=== PATIENT | male | born 1940 | race American Indian/Alaskan Native ===

== ENCOUNTER 2017-12-28 10:15 | Day surgery (SDC) | payer MEDICARE ==
[2017-12-23 10:15] VITALS: BMI 26.6
[2017-12-28] MEDS ORDERED: EPINEPHrine 1 mg/ml (1:1000) Inj ONE (11:26)
[2017-12-28] MEDS ORDERED: Lidocaine 2% MPF (5 ml) Inj ONE (11:27)
[2017-12-28] MEDS ORDERED: Midazolam 2 MG/2 ML VIAL ONE (11:39)
[2017-12-28] MEDS ORDERED: Propofol 10 mg/ml Inj (20 ML) ONE (12:27)
[2017-12-28] MEDS ORDERED: Succinylcholine Chloride 20 mg/ml Syr (5 ml) IV ONE (12:32)
[2017-12-28] MEDS ORDERED: Lactated Ringer's 1,000 ML IV ONE (13:25)
[2017-12-28] MEDS ORDERED: Lactated Ringer's 1,000 ML IV SCH (13:45)
--- NOTE | 2017-12-28 14:11 | RAD ---
PROCEDURE: Intraoperative Fluoroscopy. HISTORY: RT. LUNG MASS FINDINGS: Fluoroscopic assistance was provided for bronchoscopy. Please refer to the operative report from [facility]. Total fluoroscopic time (continuous mode) utilized during the procedure 56.5 (seconds). Total exam DLP: (mGy) 7.85
--- NOTE | 2017-12-28 14:15 | RAD ---
HISTORY: s/p bronchoscopy; History of lung cancer COMPARISON: No prior. FINDINGS: LUNGS: Extensive abnormal opacity throughout the right lung, heterogeneous. Bandlike opacity at the right base, possibly atelectasis. Homogeneous opacity in the upper right lung. Left lung clear. PLEURA: Possible small right pleural effusion. No pneumothorax. CARDIOVASCULAR: Normal. OSSEOUS STRUCTURES: Deformity of right chest wall, possibly status post prior thoracotomy. VISUALIZED UPPER ABDOMEN: Normal. OTHER FINDINGS: None. IMPRESSION: Abnormal opacity throughout the upper right lung, possibly pneumonia. No pneumothorax. Possible small right pleural effusion.
[2017-12-28 15:25] VITALS: RESP 18
[2017-12-28 15:38] VITALS: BP 138/52; PULSE 72; TEMP 97.7; O2SAT 97
--- NOTE | 2017-12-29 06:20 | OP ---
PROCEDURE DATE: PROCEDURE: Bronchoscopy, transbronchial biopsy, and endobronchial ultrasound. INDICATION: lung cancer and mediastinal adenopathy. DESCRIPTION OF THE PROCEDURE: Initially fibreoptic diagnostic scope, nadia is distorted. The secretion from the right upper lobe and right lower lobe, brushing biopsy and washing done. The scope was withdrawn and EBUS bronchoscopy was introduced and multiple attempts to localize the significant adenopathy, did not reveal any adenopathy. The scope was withdrawn, and the patient tolerated the procedure. Pepe Moran MD
== END 2017-12-28 15:45 | disposition home or self-care (01) ==
LOC: C.SDS 10:15
PROVIDERS: ATTEND Internal Medicine Pulmonary Disease
DX: C34.90 Malignant neoplasm of unspecified part of unspecified bronchus or lung (principal)
CPT/HCPCS: 31625; 71045; 82948; 87070; 87101; 87116; 87206; 88104; 88305; J0171; J7120